=== PATIENT | male | born 1995 | race Caucasian/White ===

== ENCOUNTER 2016-08-11 20:41 | Emergency (ER) | payer OTHER ==
[2016-08-11 20:45] VITALS: BP 146/74; PULSE 64; TEMP 98; BMI 23.7
--- NOTE | 2016-08-11 20:47 | PDOC ---
History of Present Illness - General Chief Complaint: Toothache Stated Complaint: TOOTHACHE Time Seen by Provider: 08/11/16 20:46 History Source: Patient Exam Limitations: No Limitations - History of Present Illness Initial Comments: CHIEF COMPLAINT: 20 y/o afebrile male with no significant PMH c/o toothache for the past 3 days. HISTORY OF PRESENT ILLNESS: The patient admits he knows he needs a root canal and that one of his fillings is loose. He states he has an appointment for the dentist scheduled for saturday but he can't take the pain anymore. He states he had a fever yesterday. He has not taken anything for pain. Vital signs on arrival are within normal limits. REVIEW OF SYSTEMS: GENERAL/CONSTITUTIONAL: Subjective fever yesterday. No weakness. No weight change. HEAD, EYES, EARS, NOSE AND THROAT: No change in vision. No ear pain or discharge. No sore throat. +toothache CARDIOVASCULAR: No chest pain or shortness of breath. SKIN: No rash or easy bruising. NEUROLOGIC: No headache, vertigo, loss of consciousness, or loss of sensation. PHYSICAL EXAM: GENERAL: The patient is awake, alert, and fully oriented, in no acute distress. He is well appearing and ambulatory. HEAD: Normal with no signs of trauma. ENT: Pupils equal, round and reactive to light, extraocular movements intact, sclera anicteric, conjunctiva clear. No facial swelling. Back, lower left tooth exquisitely TTP with surrounding gingival erythema and edema. No fluctuance to face. No trismus. NEUROLOGICAL: Normal speech, normal gait. CN II-XII grossly intact. SKIN: Warm, dry, normal turgor, no rashes or lesions noted. Past History - Past Medical History Allergies/Adverse Reactions: Allergies Allergy/AdvReac Type Severity Reaction Status Date / Time No Known Allergies Allergy Verified 08/11/16 20:45 Home Medications: Ambulatory Orders Amoxicillin - [Amoxicillin 500mg Capsule -] 500 mg PO TID #21 capsule 08/11/16 Asthma: Yes - Immunization History Immunization Up to Date: No - Psycho/Social/Smoking Cessation Hx Anxiety: No Suicidal Ideation: No Smoking History: Never smoked Have you smoked in the past 12 months: No Information on smoking cessation initiated: No Hx Alcohol Use: No Drug/Substance Use Hx: No Substance Use Type: None *Physical Exam - Vital Signs Last Vital Signs Temp Pulse Resp BP Pulse Ox 98 F 64 18 146/74 100 08/11/16 20:43 08/11/16 20:43 08/11/16 20:43 08/11/16 20:43 08/11/16 20:43 Medical Decision Making - Medical Decision Making A/P: 20 y/o male with infected tooth. WIll give PO ibuprofen in the ER. WIll send rx for amoxicillin to pharmacy and instructed him to take entire 7 days. Suggested he take Motrin every 6 hours with food for pain, gargle with warm salt water after every meal and keep appointment with dentist scheduled for saturday. Pt instructed to return to the ER with any worsening or concerning symptoms. The patient verbalizes understanding of all instructions, has no further questions and is awaiting discharge. *DC/Admit/Observation/Transfer Diagnosis at time of Disposition: Dental caries, Toothache - Discharge Dispostion Disposition: HOME Condition at time of disposition: Good - Prescriptions Prescriptions: Amoxicillin - [Amoxicillin 500mg Capsule -] 500 mg PO TID #21 capsule - Referrals Referrals: Carmella Blackman [Primary Care Provider] - - Patient Instructions Printed Discharge Instructions: DI for Dental Pain, DI for Tooth Decay Additional Instructions: Discharge Instructions: -A prescription for antibiotics was sent to your pharmacy; please take as prescribed and complete entire course -Take 600mg of Ibuprofen every 6 hours for pain with food -Gargle with warm salt water or listerine after each meal -Follow up with your dentist on Saturday -Return to the ER with any worsening or concerning symptoms
[2016-08-11] MEDS ORDERED: IBUPROFEN 600 MG TABLET (FP) PO ONE ×2 (21:47→21:54)
== END 2016-08-11 22:04 | disposition home or self-care (01) ==
LOC: JERFT 20:41
DX: K02.9 Dental caries, unspecified (principal); J45.909 Unspecified asthma, uncomplicated
CPT/HCPCS: 99281-25

== ENCOUNTER 2018-01-21 20:48 | Emergency (ER) | payer SELFPAY ==
[2018-01-21 20:54] VITALS: BP 113/61; PULSE 89; TEMP 98.4; BMI 22.2
--- NOTE | 2018-01-21 20:54 | PDOC ---
Rapid Medical Evaluation Time Seen by Provider: 01/21/18 20:52 Medical Evaluation: Allergies Allergy/AdvReac Type Severity Reaction Status Date / Time No Known Allergies Allergy Verified 08/11/16 20:45 01/21/18 20:52 Pt presents for chills, body aches, constipation/rectal bleeding. Pt has hx of hemorrhoids Exam: well appearing, nad, afebrile Orders: defer to provider Pt to proceed to ED for further evaluation Discharge Disposition - Diagnosis Rectal bleed - Referrals - Patient Instructions - Post Discharge Activity
--- NOTE | 2018-01-21 21:40 | PDOC ---
History of Present Illness - General Chief Complaint: Rectal Bleed Stated Complaint: FEVER Time Seen by Provider: 01/21/18 20:52 - History of Present Illness Initial Comments: 01/21/18 21:37 22-year-old male presents for evaluation of fever chills or night sweats an upper respiratory type symptoms 5 days. He also has 3 days of bloody stool. He states he went have a bowel movement today he felt a wetness from his rectum and there was jennifer blood in the toilet dark red, and blood on the toilet paper. He also has history of hemorrhoids he feels this may be related Past History - Past Medical History Allergies/Adverse Reactions: Allergies Allergy/AdvReac Type Severity Reaction Status Date / Time No Known Allergies Allergy Verified 08/11/16 20:45 Home Medications: Ambulatory Orders NK [No Known Home Medication] 01/21/18 Asthma: Yes Cardiac Disorders: Yes (right bundle branch block) COPD: No - Immunization History Immunization Up to Date: No - Suicide/Smoking/Psychosocial Hx Smoking History: Never smoked Have you smoked in the past 12 months: No Hx Alcohol Use: No Drug/Substance Use Hx: No Substance Use Type: None Review of Systems - Review of Systems Constitutional: Yes: Chills, Fever, Malaise, Night Sweats ABD/GI: Yes: See HPI, Rectal Bleeding All Other Systems: Reviewed and Negative *Physical Exam - Vital Signs Last Vital Signs Temp Pulse Resp BP Pulse Ox 98.4 F 89 18 113/61 100 01/21/18 20:52 01/21/18 20:52 01/21/18 20:52 01/21/18 20:52 01/21/18 20:52 - Physical Exam Comments: 01/21/18 21:39 HEAD: NC/AT EYES: Conjuntiva clear Ears: Canals and TM's normal NOSE: No d/c THROAT: Moist mucous membrances, oral pharanx clear, uvula midline NECK: Supple without adenopathy CARDIAC: S1 S2 LUNGS: CTA Full and Equal breath sounds ABDOMEN: Soft NT ND, patient is unable to tolerate rectal examination. There are no external hemorrhoids. Rectal tone is normal. There feels to be an internal hemorrhoid at the 3 and 6 o'clock position. This is exquisitely tender. Bowel sounds are absent. Abdomen is soft and nontender in all quadrants. MS: Full ROM in all joints without edema NEUROLOGIC: No gross sensory or motor deficits, NVID SKIN: Normal color and temperature no lesions or rashes Medical Decision Making - Medical Decision Making I will transfer this patient to the main emergency room for further evaluation and treatment 01/21/18 21:40 *DC/Admit/Observation/Transfer Diagnosis at time of Disposition: Rectal bleed - Referrals - Patient Instructions - Post Discharge Activity
[2018-01-21 22:08] LABS: BASO % 0.2 % (0-2.0); EOS % 1.7 % (0-4.5); HEMATOCRIT 41.6 % (35.4-49); HEMOGLOBIN 14.2 GM/dL (11.7-16.9); LYMPH % 26.6 % (8-40); MCH 32.2 pg (25.7-33.7); MCHC 34.2 g/dl (32.0-35.9); MEAN CELL VOLUME 94.2 fl (80-96); MEAN PLT VOLUME 10.9 fl (7.5-11.1); MONO % 9.1 % (3.8-10.2); NEUT % 62.4 % (42.8-82.8); PLATELET COUNT 141 K/MM3 (134-434); RBC 4.42 M/mm3 (4.00-5.60); RDW 12.2 % (11.9-15.9); WHITE BLOOD COUNT 4.9 K/mm3 (4.0-10.0)
--- NOTE | 2018-01-21 22:09 | PDOC ---
*Physical Exam - Vital Signs Last Vital Signs Temp Pulse Resp BP Pulse Ox 98.4 F 89 18 113/61 100 01/21/18 20:52 01/21/18 20:52 01/21/18 20:52 01/21/18 20:52 01/21/18 20:52 - Physical Exam General Appearance: Yes: Appropriately Dressed ED Treatment Course - LABORATORY CBC & Chemistry Diagram: 01/21/18 21:53 01/21/18 21:53 Medical Decision Making - Medical Decision Making 01/21/18 22:07 22 year MSM with rectal bleeding. history of constipation. patient reports constipation x 4-5 days. rectal bleeding when he wiped/. 01/21/18 22:10 HIV negative 01/21/18 23:22 *DC/Admit/Observation/Transfer Diagnosis at time of Disposition: Rectal bleed Constipation Qualifiers: Constipation type: unspecified constipation type Qualified Code(s): K59.00 - Constipation, unspecified - Discharge Dispostion Disposition: HOME - Prescriptions Prescriptions: Magnesium Citrate [Citroma -] 195 ml PO ONCE #1 bottle Phenylephrine 0.25%/Starch [Anusol Suppository -] 1 each RC BID #14 supp Polyethylene Glycol 3350 [Miralax (For Daily Use) -] 17 gm PO DAILY #1 bottle - Referrals Referrals: Barry Herbert MD [Staff Physician] - Call tomorrow - Patient Instructions Printed Discharge Instructions: Constipation Additional Instructions: drink plenty of fluids use anusol for rectal pain use miralax as prescribed. drink magnesium citrate as prescribed. follow up with your doctor as soon as possible. - Post Discharge Activity Forms/Work/School Notes: Back to Work
[2018-01-21 22:22] LABS: INR 1.2 (0.83-1.09); PROTHROMBIN TIME (PATIENT) 14.2 SEC (9.7-13.0)
[2018-01-21] MEDS ORDERED: HYDROCORTISONE ACETATE 25 MG/SUPP.RECT PR ONE (22:24)
[2018-01-21 22:33] LABS: ALBUMIN 4.2 g/dl (3.4-5.0); ALK PHOS 100 U/L (45-117); ANION GAP 6 MMOL/L (8-16); BILIRUBIN,TOTAL 0.5 mg/dL (0.2-1); BLOOD UREA NITROGEN 9 mg/dL (7-18); CALCIUM 8.6 mg/dL (8.5-10.1); CHLORIDE 103 mmol/L (98-107); CO2 29 mmol/L (21-32); CREATININE 0.7 mg/dL (0.55-1.3); GLUCOSE,RANDOM 71 mg/dL (74-106); SGOT/AST 16 U/L (15-37); SGPT/ALT 19 U/L (13-61); SODIUM 138 mmol/L (136-145)
[2018-01-21 22:37] LABS: URINE APPEARANCE CLEAR; URINE BILIRUBIN NEGATIVE (<2.0 mg/dL); URINE COLOR YELLOW; URINE GLUCOSE (UA) NEGATIVE (NEGATIVE); URINE KETONE NEGATIVE (NEGATIVE); URINE LEUK ESTERASE NEGATIVE (NEGATIVE); URINE NITRITE NEGATIVE (NEGATIVE); URINE PROTEIN NEGATIVE (NEGATIVE); URINE UROBILINOGEN 4.0 E.U/dl mg/dL (0.2-1.0)
== END 2018-01-21 23:40 | disposition home or self-care (01) ==
LOC: JER 20:48
DX: K59.00 Constipation, unspecified (principal); K64.8 Other hemorrhoids
CPT/HCPCS: 36415; 80053; 81003; 82272; 85025; 85610; 86850; 86900; 86901; 87389; 87491; 87591; 87804; 99281-25

== ENCOUNTER 2018-01-23 00:28 | Emergency (ER) | payer SELFPAY ==
--- NOTE | 2018-01-23 00:53 | PDOC ---
History of Present Illness - General Chief Complaint: Pain Stated Complaint: ABD PAIN Time Seen by Provider: 01/23/18 00:49 History Source: Patient - History of Present Illness Initial Comments: 01/23/18 01:11 22 year old male seen in the ER for constipation and rectal hemorrhoidal pain yesterday c/o multiple small BMs after taking magnesium citrate at 2pm now with intermittent abdominal cramping and rectal pain. Past History - Past Medical History Allergies/Adverse Reactions: Allergies Allergy/AdvReac Type Severity Reaction Status Date / Time No Known Allergies Allergy Verified 01/23/18 03:18 Home Medications: Ambulatory Orders Hydrocortisone/Pramoxine [Procort 1.85%-1.15% Cream] 1 applic RC BID #1 cream.appl 01/23/18 Lidocaine 5% Top. Ointment [Xylocaine 5% Top. Ointment -] 1 applic TP BID PRN # 1 tube 01/23/18 Asthma: Yes Cardiac Disorders: Yes (right bundle branch block) COPD: No - Immunization History Immunization Up to Date: No - Suicide/Smoking/Psychosocial Hx Smoking History: Never smoked Have you smoked in the past 12 months: No Hx Alcohol Use: No Drug/Substance Use Hx: No Substance Use Type: None Review of Systems - Review of Systems Able to Perform ROS?: Yes Is the patient limited Arabic proficient: No Constitutional: No: Symptoms Reported, See HPI, Chills, Diaphoresis, Fever, Loss of Appetite, Malaise, Night Sweats, Weakness, Weight Stable, Unintentional Wgt. Loss, Unexplained wgt Loss, Other *Physical Exam - Physical Exam General Appearance: Yes: Appropriately Dressed Gastrointestinal/Abdominal: positive: Soft, Increased Bowel Sounds Male Genitalia: positive: normal genitalia, testicular mass Rectal Exam: positive: other (+ anal fissures) Extremity: positive: Normal Capillary Refill Integumentary: positive: Normal Color, Dry, Warm Neurologic: positive: Fully Oriented, Alert, Normal Mood/Affect ED Treatment Course - LABORATORY CBC & Chemistry Diagram: 01/23/18 03:04 01/23/18 03:04 Progress Note - Progress Note Progress Note: A: constipation. abdominal pain P: Medical Decision Making - Medical Decision Making 01/23/18 02:49 Abdomen xray: Borderline dilated air-filled small bowel left lower quadrant and top normal diameter loops left upper quadrant, possibly transient dilatation or ileus, with early/partial small bowel obstruction thought less likely but not excluded. Small air and fluid within colon. Splenilc flexure diameter is top normal. Minimal feces colon. 01/23/18 02:58 patient with intermittent severe abdominal cramping. xray cannot r/o SBO. will check labs, ctAP. *DC/Admit/Observation/Transfer Diagnosis at time of Disposition: Proctitis Abdominal pain Qualifiers: Abdominal location: generalized Qualified Code(s): R10.84 - Generalized abdominal pain - Discharge Dispostion Disposition: HOME Condition at time of disposition: Fair - Prescriptions Prescriptions: Hydrocortisone/Pramoxine [Procort 1.85%-1.15% Cream] 1 applic RC BID #1 cream.appl Lidocaine 5% Top. Ointment [Xylocaine 5% Top. Ointment -] 1 applic TP BID PRN # 1 tube PRN Reason: Pain - Referrals Referrals: Guerrero Ni MD [Staff Physician] - Call tomorrow - Patient Instructions Printed Discharge Instructions: Anal Fissure Additional Instructions: please follow up with a animal husbandry technician as soon as possible. apply the cream as prescribed for pain you may take Maalox for gas pain. Additional Instructions: * Please call your personal physician to report your Emergency Department visit and to report your progress, if any. * If there is no improvement in symptoms in 2 days call your physician. * Return to the Emergency Department for any worsening symptoms. - Post Discharge Activity Forms/Work/School Notes: Back to Work
[2018-01-23] MEDS ORDERED: LIDOCAINE HCL 5% TOP OINTMENT 50 GM TUBE TP ONE (00:55)
[2018-01-23] MEDS ORDERED: LIDOCAINE HCL 2% JELLY 10 ML CARTRIDGE ONE (01:02)
[2018-01-23 01:06] VITALS: BP 103/68; PULSE 84; TEMP 98.1; BMI 22.2
[2018-01-23] MEDS ORDERED: MAG HYDROX/AL HYDROX/SIMETH -MYLANTA- ORAL SUSPENSION PO ONE (01:48)
[2018-01-23] MEDS ORDERED: MAG HYDROX/AL HYDROX/SIMETH 30 ML UNIT-DOSE CUP ONE (02:08)
[2018-01-23] MEDS ORDERED: SODIUM CHLORIDE 1,000 ML IV STA (02:56)
[2018-01-23] MEDS ORDERED: MORPHINE SULFATE 2 MG/ML VIAL IVPUSH ONE (02:57)
[2018-01-23] MEDS ORDERED: MORPHINE SULFATE 2 MG/ML VIAL ONE (03:08)
[2018-01-23 03:11] LABS: BASO % 0.1 % (0-2.0); EOS % 0.5 % (0-4.5); HEMATOCRIT 40.9 % (35.4-49); HEMOGLOBIN 13.8 GM/dL (11.7-16.9); LYMPH % 10.2 % (8-40); MCH 31.3 pg (25.7-33.7); MCHC 33.8 g/dl (32.0-35.9); MEAN CELL VOLUME 92.5 fl (80-96); MEAN PLT VOLUME 10.9 fl (7.5-11.1); MONO % 7.6 % (3.8-10.2); NEUT % 81.6 % (42.8-82.8); PLATELET COUNT 146 K/MM3 (134-434); RBC 4.42 M/mm3 (4.00-5.60); RDW 11.9 % (11.9-15.9); WHITE BLOOD COUNT 7.9 K/mm3 (4.0-10.0)
[2018-01-23 03:39] LABS: ALBUMIN 4.1 g/dl (3.4-5.0); ALK PHOS 89 U/L (45-117); ANION GAP 10 MMOL/L (8-16); BILIRUBIN,TOTAL 0.6 mg/dL (0.2-1); BLOOD UREA NITROGEN 7 mg/dL (7-18); CALCIUM 8.5 mg/dL (8.5-10.1); CHLORIDE 104 mmol/L (98-107); CO2 24 mmol/L (21-32); CREATININE 0.7 mg/dL (0.55-1.3); GLUCOSE,RANDOM 93 mg/dL (74-106); LIPASE 133 U/L (73-393); SGOT/AST 14 U/L (15-37); SGPT/ALT 16 U/L (13-61); SODIUM 138 mmol/L (136-145); TOT PROT 7.5 g/dl (6.4-8.2)
== END 2018-01-23 05:31 | disposition home or self-care (01) ==
LOC: JER 00:28
PROC: 3E0337Z Introduction of Electrolytic and Water Balance Substance into Peripheral Vein, Percutaneous Approach (ICD-10-PCS; principal; 2018-01-23)
PROC: 3E033NZ Introduction of Analgesics, Hypnotics, Sedatives into Peripheral Vein, Percutaneous Approach (ICD-10-PCS; 2018-01-23)
DX: K62.89 Other specified diseases of anus and rectum (principal)
CPT/HCPCS: 36415; 74019-TC-FY; 74177-TC; 80053; 83690; 85025; 99283-25; J7030

== ENCOUNTER 2018-01-30 10:12 | Emergency (ER) | payer OTHER ==
[2018-01-30 10:32] VITALS: BP 108/64; PULSE 69; TEMP 98.7; BMI 20.7
[2018-01-30 10:53] LABS: URINE APPEARANCE CLEAR; URINE BILIRUBIN NEGATIVE (<2.0 mg/dL); URINE COLOR YELLOW; URINE GLUCOSE (UA) NEGATIVE (NEGATIVE); URINE KETONE NEGATIVE (NEGATIVE); URINE LEUK ESTERASE NEGATIVE (NEGATIVE); URINE NITRITE NEGATIVE (NEGATIVE); URINE PROTEIN NEGATIVE (NEGATIVE)
--- NOTE | 2018-01-30 11:37 | PDOC ---
History of Present Illness - General Chief Complaint: Urinary Problem Stated Complaint: Urinary symptoms Time Seen by Provider: 01/30/18 11:10 History Source: Patient Exam Limitations: Clinical Condition - History of Present Illness Initial Comments: 01/30/18 11:33 Patient with history of chronic constipation present with complain of dysuria and urinary retention for 3 days. Patient reported whenever he avoids he doesn' t completely empty his bladder and have hard time urinating. Patient was seen a week ago for same symptoms and STD test came back positive for chlamydia. Patient reported he was treated with both ceftriaxone and azithromycin in another clinic 6 days ago and symptoms improved. Patient reported both him and the partner was treated and has not had any sex since treatment. Patient also report bilateral inguinal tenderness lymph nodes for same. Patient denies fever , chills, back pain, nausea or vomiting. Timing/Duration: other (3 days) Past History - Past Medical History Allergies/Adverse Reactions: Allergies Allergy/AdvReac Type Severity Reaction Status Date / Time No Known Allergies Allergy Verified 01/30/18 10:23 Home Medications: Ambulatory Orders Doxycycline Hyclate 100 mg PO BID #14 tablet 01/30/18 Asthma: Yes Cardiac Disorders: Yes (right bundle branch block) COPD: No - Immunization History Immunization Up to Date: No - Suicide/Smoking/Psychosocial Hx Smoking History: Never smoked Have you smoked in the past 12 months: No Information on smoking cessation initiated: No Hx Alcohol Use: No Drug/Substance Use Hx: No Substance Use Type: None Review of Systems - Review of Systems Able to Perform ROS?: Yes Is the patient limited Tanzanian proficient: No Constitutional: No: Chills, Fever Respiratory: No: Symptoms reported, Cough, Orthopnea, Shortness of Breath, SOB with Exertion, SOB at Rest, Stridor, Wheezing, Productive cough, Hemoptysis, Other Cardiac (ROS): No: See HPI, Chest Pain, Edema, Irregular Heart Rate, Lightheadedness, Palpitations, Syncope, Chest Tightness, Other : Yes: See HPI, Other (swollen b/l lymph node). No: Dysuria, Discharge, Frequency, Flank Pain, Hematuria, Urgency Musculoskeletal: No: Back Pain Hematologic/Lymphatic: Yes: Lymph Node Abnormalities (b/l inguinal) All Other Systems: Reviewed and Negative *Physical Exam - Vital Signs Last Vital Signs Temp Pulse Resp BP Pulse Ox 98.7 F 69 18 108/64 99 01/30/18 10:19 01/30/18 10:19 01/30/18 10:19 01/30/18 10:19 01/30/18 10:19 - Physical Exam Comments: 01/30/18 11:38 GENERAL: Well developed, well nourished. Awake and alert. No acute distress. NECK: Supple. Full ROM. No JVD. Carotid pulses 2+ and symmetric, without bruits. No thyromegaly. No lymphadenopathy. CARDIOVASCULAR: Regular rate and rhythm. No murmurs, rubs, or gallops. Distal pulses are 2+ and symmetric. PULMONARY: No evidence of respiratory distress. Lungs clear to auscultation bilaterally. No wheezing, rales or rhonchi. ABDOMINAL: Soft. Non-tender. Non-distended. No rebound or guarding. No organomegaly. Normoactive bowel sounds. : b/l swollen inguinal lymphandenopathy. no penis pain or lesion. no scrotal swelling or edema SKIN: Warm and dry. Normal capillary refill. No rashes. No jaundice. NEUROLOGICAL: Alert, awake, appropriate. PSYCHIATRIC: Cooperative. Good eye contact. Appropriate mood and affect. General Appearance: Yes: Nourished, Appropriately Dressed. No: Apparent Distress ED Treatment Course - ADDITIONAL ORDERS Additional order review: Laboratory Results 01/30/18 10:30 Urine Color Yellow Urine Appearance Clear Urine pH 6.0 D Ur Specific [place] 1.023 Urine Protein Negative Urine Glucose (UA) Negative Urine Ketones Negative Urine Blood Negative Urine Nitrite Negative Urine Bilirubin Negative Urine Urobilinogen 2.0 Ur Leukocyte Esterase Negative - RADIOLOGY Radiology Studies Ordered: Category Date Time Status PELVIC / BLADDER US [US] Stat Ultrasound 01/30/18 11:27 Ordered Medical Decision Making - Medical Decision Making 01/30/18 11:44 Patient with history of constipation and STI infection status post treatment for chlamydia a week ago present with complain of dysuria, bilateral inguinal left no swelling and retention. Patient able to give urine for urinalysis without problem but reported not completely able to empty bladder. Exams significant for bilateral groin no lymphadenopathy. Pelvic/blaader ultrasound ordered. Urinalysis with no significant findings. Treat based on ultrasound results 01/30/18 12:40 bladder ultrasound done shows no acute pathology. patient stable for discharge on doxycycline with urology follow-up 01/30/18 12:43 *DC/Admit/Observation/Transfer Diagnosis at time of Disposition: Dysuria, Inguinal lymphadenitis - Discharge Dispostion Disposition: HOME Condition at time of disposition: Stable Decision to Admit order: No - Prescriptions Prescriptions: Doxycycline Hyclate 100 mg PO BID #14 tablet - Referrals Referrals: Mimi Maloney S.A. [Other Staff,non-medical] - - Patient Instructions Printed Discharge Instructions: DI for Lymphadenopathy Additional Instructions: Your ultrasound was negative. Take prescribed medication and condition. Follow up with preferred urology for follow-up evaluation. - Post Discharge Activity
== END 2018-01-30 13:01 | disposition home or self-care (01) ==
LOC: JERFT 10:12
DX: I88.8 Other nonspecific lymphadenitis (principal); K59.09 Other constipation; Z86.19 Personal history of other infectious and parasitic diseases
CPT/HCPCS: 76856-TC; 81003; 87086; 99281-25

== ENCOUNTER 2018-06-01 17:24 | Emergency (ER) | payer SELFPAY ==
[2018-06-01 17:34] VITALS: BP 97/50; PULSE 61; TEMP 98.5; BMI 22.2
== END 2018-06-01 17:55 | disposition left against medical advice (07) ==
LOC: JERFT 17:24
DX: Z53.21 Procedure and treatment not carried out due to patient leaving prior to being seen by health care provider (principal)
CPT/HCPCS: 99281-25

== ENCOUNTER 2018-08-28 19:04 | Emergency (ER) | payer OTHER | END 2018-08-28 21:36 | disposition home or self-care (01) | LOC: JERFT 19:04 ==

== ENCOUNTER 2018-11-16 15:24 | Emergency (ER) | payer OTHER ==
[2018-11-16 15:40] VITALS: TEMP 97.9; BMI 23.3
--- NOTE | 2018-11-16 16:18 | PDOC ---
History of Present Illness - General Chief Complaint: Asthma Stated Complaint: ASTHMA Time Seen by Provider: 11/16/18 16:11 History Source: Significant Other - History of Present Illness Initial Comments: 11/16/18 17:24 Meet Coyne is a 22 y/o man with hx asthma, GERD, followed by cardiology for workup of EKG changes thought to be evolving RBBB presenting for three hours of chest tightness and mild wheezing. He is accompanied by his boyfriend. He was treated here two days ago for asthma exacerbation, with symptom resolution after duoneb x2 and prednisone. He was prescribed prednisone after symptom resolution and was discharged home. He reports that yesterday he felt well, but that at approx 1400 today he began endorsing 7/10 chest tightness with mild wheezing. He denies any dizziness, LOC, difficulty breathing, fatigue, fevers, chills. He reports not taking his albuterol inhaler or steroid today due to concern that they would worsen his chest tightness. He reports that they have a cat. No sick contacts. Past History - Past Medical History Allergies/Adverse Reactions: Allergies Allergy/AdvReac Type Severity Reaction Status Date / Time No Known Allergies Allergy Verified 11/14/18 21:37 Home Medications: Ambulatory Orders Albuterol Sulfate Inhaler - [Ventolin Hfa Inhaler -] 1 - 2 inh PO QID 11/14/18 Clindamycin 1% Gel [Cleocin] 30 gm TP PRN 11/14/18 Clindamycin Phos/Benzoyl Perox [Benzaclin Gel] 25 gm TP DAILY 11/14/18 Famotidine [Pepcid] 40 mg PO HS 11/14/18 Fluticasone Prop 0.05% Nasal [Flonase -] 1 - 2 spray NS HS 11/14/18 Prednisone [Prednisone 50 MG TABLETS] 50 mg PO DAILY #5 tablet 11/14/18 Asthma: Yes Cardiac Disorders: Yes (right bundle branch block) COPD: No - Immunization History Immunization Up to Date: No - Suicide/Smoking/Psychosocial Hx Smoking History: Never smoked Have you smoked in the past 12 months: No Information on smoking cessation initiated: No Hx Alcohol Use: No Drug/Substance Use Hx: No Substance Use Type: None Review of Systems - Review of Systems Able to Perform ROS?: Yes Comments:: 11/16/18 17:15 ROS: GENERAL/CONSTITUTIONAL: No fever or chills. No weakness. HEAD, EYES, EARS, NOSE AND THROAT: No change in vision. No ear pain or discharge. No sore throat. CARDIOVASCULAR: Chest tightness, shortness of breath RESPIRATORY: No cough, wheezing, or hemoptysis. GASTROINTESTINAL: No nausea, vomiting, diarrhea or constipation. GENITOURINARY: No dysuria, frequency, or change in urination. MUSCULOSKELETAL: No joint or muscle swelling or pain. No neck or back pain. SKIN: No rash NEUROLOGIC: No headache, vertigo, loss of consciousness, or change in strength/ sensation. ENDOCRINE: No increased thirst. No abnormal weight change HEMATOLOGIC/LYMPHATIC: No anemia, easy bleeding, or history of blood clots. ALLERGIC/IMMUNOLOGIC: No hives or skin allergy. *Physical Exam - Vital Signs Last Vital Signs Temp Pulse Resp BP Pulse Ox 97.9 F 64 16 121/77 100 11/16/18 15:35 11/16/18 15:35 11/16/18 15:35 11/16/18 15:35 11/16/18 15:35 - Physical Exam Comments: 11/16/18 17:15 PE: GENERAL: Awake, alert, and fully oriented, in no acute distress HEAD: No signs of trauma, normocephalic, atraumatic EYES: PERRLA, EOMI, sclera anicteric, conjunctiva clear ENT: Auricles normal inspection, hearing grossly normal, nares patent, oropharynx clear without exudates. Moist mucosa NECK: Normal ROM, supple, no lymphadenopathy, JVD, or masses LUNGS: No distress, speaks full sentences. Mild wheezes diffusely, normal air movement into lungs, no consolidations. HEART: Regular rate and rhythm, normal S1 and S2, no murmurs, rubs or gallops, peripheral pulses normal and equal bilaterally. ABDOMEN: Soft, nontender, normoactive bowel sounds. No guarding, no rebound. No masses EXTREMITIES : Clubbing of fingers of bilateral hands. Normal inspection, Normal range of motion, no edema. No cyanosis. NEUROLOGICAL: Cranial nerves II through XII grossly intact. Normal speech, normal gait, no focal sensorimotor deficits SKIN: Warm, Dry, normal turgor, no rashes or lesions noted Medical Decision Making - Medical Decision Making 11/16/18 17:16 22 y/o M with hx asthma, GERD, ?partial RBBB being worked up by cardiology (Dr. Vega) p/w three hours of mild wheezing and chest tightness, speaking full sentences with no distress, after not taking his inhaler or prednisone today. Most consistent with asthma exacerbation, cardiac etiology unlikely given overall presentation and history, but possible given ongoing cardiac evaluation. Of note, clubbing of fingers on physical exam may indicate other structural cardiac pathology not yet worked up. He will follow with cardiology during his appointment on Saturday. Plan: Duoneb x1 given mild sx Prednisone po Troponin x1 Follow up with Dr. Vega (cardiology) during already scheduled appointment Counseled regarding possible chest symptoms with asthma and importance of medication use Dispo: Home pending troponin, symptomatic improvement with duoneb, steroid 11/16/18 19:12 Called down to lab - HIV oraquick test unavailable. Ordered HIV serum 4th gen 11/16/18 20:50 Lungs clearer bilaterally on exam. Patient reporting symptom resolution. Plan for discharge home, follow up with PCP, tip printer as scheduled *DC/Admit/Observation/Transfer Diagnosis at time of Disposition: Asthma Qualifiers: Asthma severity: mild Asthma persistence: unspecified Asthma complication type : unspecified Qualified Code(s): J45.909 - Unspecified asthma, uncomplicated - Discharge Dispostion Disposition: HOME Condition at time of disposition: Stable Decision to Admit order: No - Referrals Referrals: ON STAFF,NOT [Primary Care Provider] - - Patient Instructions Printed Discharge Instructions: Facts About Sexually Transmitted Infections, Asthma -- Adult Additional Instructions: You were seen in the Emergency Department for asthma. Please follow up with your primary care provider in the next few days. Make sure that you take your inhaler and steroid medication, as they can help prevent your symptoms. Please return to the emergency department if you develop any severe shortness of breath , or having trouble breathing. Make sure that you follow up with your tip printer on Saturday during your scheduled appointment. The results of your STI testing will be available online in the secure patient portal in the next few days. - Post Discharge Activity Forms/Work/School Notes: Back to Work
[2018-11-16] MEDS ORDERED: ALBUTEROL SO4 2.5/IPRATROPIUM 0.5 INH SOL 3 ML VIAL.NEB. NEB ONE ×2 (16:59→17:18)
[2018-11-16] MEDS ORDERED: predniSONE 5 MG TABLET (UD) PO ONE (16:59)
[2018-11-16] MEDS ORDERED: predniSONE 20 MG TABLET (UD) PO ONE (20:06)
[2018-11-16] MEDS ORDERED: predniSONE 20 MG TABLET (UD) ONE (20:14)
[2018-11-16 21:13] VITALS: BP 120/75; PULSE 58
--- NOTE | 2018-11-16 23:03 | PDOC ---
Documentation entered by Spenser Womack SCRIBE, acting as scribe for Aleksandra Mcclendon MD. Aleksandra Mcclendon MD: This documentation has been prepared by the Vu lee Nirvannie, SCRIBE, under my direction and personally reviewed by me in its entirety. I confirm that the documentation accurately reflects all work, treatment, procedures, and medical decision making performed by me. Attending Attestation - Resident Resident Name: Alirio Kauffman - ED Attending Attestation I have performed the following: I have examined & evaluated the patient, The case was reviewed & discussed with the resident, I agree w/resident's findings & plan - HPI HPI: The patient is a 22 year old male, with a significant past medical history of asthma, who presents to the emergency department with, chest tightness and difficulty breathing. Patient endorses coming to the ED 2 days ago (11/14) for similar symptoms and was discharged on Prednisone. Patient notes not using his rescue inhaler secondary to him thinking it will worsen his symptoms. He denies any fevers, chills, or change in strength or sensation. 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 Allergies: NKDA - Physicial Exam PE: 11/16/18 17:07 GENERAL: Well-appearing, well-nourished. No apparent distress. HEENT: Normocephalic, atraumatic. CARDIOVASCULAR: Normal S1, S2. Regular rate and rhythm. PULMONARY: +Scant wheezing to the right lower bases. ABDOMEN: Soft, non-distended, non-tender. EXTREMITIES: +Clubbing to the blt nails. Normal ROM in all four extremities. SKIN: Warm, dry. No rash NEUROLOGICAL: No focal neurological deficits. - Medical Decision Making 11/16/18 17:57 22 yo male w h/o asthma, seen 2 days ago for asthma exacerbation has not taken inhaler or steroids today because he thought it would make his chest tightness worse -no fever,no URI symptoms, no exertional dyspnea -he does have an appt w cardiology this Wed w DR Vega for stress test -no family h/o early cardiac demise his troponin is negative Pt has concerns about STD and will do HIV testing, prior h/o treated gonorrhea in past. Pt told he will be contacted if his tests are positive for STD imp asthma exacerbation/atypical chest pain plan keep appt with Dr Saurabh Vega this Saturday - 11/16/18 19:00 11/16/18 23:02
[2018-11-17 05:35] LABS: RPR NONREACTIVE (NONREACTIVE)
[2018-11-17 07:11] LABS: TREPONEMA ANTIBODY NON REACTIVE (NONREACTIVE)
--- NOTE | 2018-11-17 08:15 | EKG ---
Test Reason : Blood Pressure : / mmHG Vent. Rate : 072 BPM Atrial Rate : 072 BPM P-R Int : 148 ms QRS Dur : 100 ms QT Int : 382 ms P-R-T Axes : 054 068 034 degrees QTc Int : 418 ms NORMAL SINUS RHYTHM POSSIBLE LEFT ATRIAL ENLARGEMENT INCOMPLETE RIGHT BUNDLE BRANCH BLOCK NONSPECIFIC T WAVE ABNORMALITY ABNORMAL ECG WHEN COMPARED WITH ECG OF 14-NOV-2018 20:28, INCOMPLETE RIGHT BUNDLE BRANCH BLOCK IS NOW PRESENT ST NO LONGER ELEVATED IN ANTERIOR LEADS T WAVE INVERSION NOW EVIDENT IN ANTERIOR LEADS CLINICAL CORRELATION IS RECOMMENDED Confirmed by BELLE MEYERS, OSCAR ([id number]) on 11/17/2018 8:15:33 AM Referred By: Confirmed By:OSCAR ODONNELL MD
[2018-11-18 19:06] LABS: HEP B CORE AB, TOT Negative (Negative)
== END 2018-11-16 20:50 | disposition home or self-care (01) ==
LOC: JER 15:24
PROC: 3E0F7GC Introduction of Other Therapeutic Substance into Respiratory Tract, Via Natural or Artificial Opening (ICD-10-PCS; principal; 2018-11-16)
DX: J45.909 Unspecified asthma, uncomplicated (principal)
CPT/HCPCS: 36415; 84484; 86593; 86704; 86705; 86706; 86707; 86780; 87389; 87491; 87522; 87591; 87661; 93005; 93010; 94640; 99282-25

== ENCOUNTER 2018-11-21 11:02 | Emergency (ER) | payer OTHER ==
[2018-11-21 11:21] VITALS: BP 118/71; PULSE 84; TEMP 97.8; BMI 23.0
--- NOTE | 2018-11-21 11:53 | PDOC ---
Attending Attestation - Resident Resident Name: Jose House - ED Attending Attestation I have performed the following: I have examined & evaluated the patient, The case was reviewed & discussed with the resident, I agree w/resident's findings & plan, Exceptions are as noted - HPI HPI: 11/21/18 11:48 22 yo male with h/o rbbb, asthma here today c/o pain left forearm. pt states he was seen twice in ed recently in last few weeks, once for syncope, and a second visit for an asthma exacerbation. at second visit he states he was given an injection in to his forearm. since has had bruising and pain in left upper arm and around area of bruise. states he was told by ems at that time they gave him the injection because were concerned about an overdose, but he denies ever using any injected drugs. no f/c no cp no sob. - Physicial Exam PE: 11/21/18 11:51 awake alert lungs faint exp wheeze bilat. heart rrrr no mrg abd soft nt nd skin left forearm area 2 x 3 inches bruising, no warmth no erythema. compartment forearm is soft, 2 + radial /ulnar pulses. hyperesthesia left inner upper arm. 11/21/18 11:54 - Medical Decision Making 11/21/18 11:53 22 yo male h/o asthma, here with c/o left arm pain after iv/ injection by ems. due to hyperestehsia, consider upper ext dvt, infection possible however no warmth, no erythema. noted bruising. no signs of compartment syndrome pt sensation intact and compartment soft. mostly tender up above elbow near bicep. plan doppler upper ext, warm compress. motrin 600, basic labs. if negative dc home with warm compress. 11/21/18 12:30 review pt chart shows multilple ed visits for various complaints std checks, rectal bleeding and asthma. d/w pt regarding home safety. states he lives with partner who he feels safe with. lives in safe environment. does report ho anxiety and panic attacks, not on any medication. denies thoughts of self harm or harm to others. no hallucinations. would like psychiatrist for outpt referral given name of DR Osei. 11/21/18 13:21 pt labs unremarkable, doppler left arm negative. dc home with warm compress, motrin for pain and given referral for [facility] per pt request for anxiety
[2018-11-21] MEDS ORDERED: IBUPROFEN 600 MG TABLET (FP) PO ONE ×2 (11:54→11:59)
--- NOTE | 2018-11-21 12:09 | PDOC ---
History of Present Illness - General Chief Complaint: Wound Stated Complaint: RT ARM INFCTION FROM THE IV Time Seen by Provider: 11/21/18 11:15 - History of Present Illness Initial Comments: 11/21/18 11:52 22m with pmh of asthma presents with hematoma of the left antecubital fossa with pain radiating to the left armpit. Was the IV site when he visited the ED on 11/16/18. Complains that the pain started 2 days ago, got worse, and now very tender. He claims the IV site was actually on the right side of the arm, and that "EMS injected something in [his] veins" during transport. IV site on records was on the left. No reports that the patient was given anything by EMS last visit. EMS records show that on the 16 of November the primary reason he was brought to the ED was Psychotic disorder/psych eval. did have an 18 gauge IV on the 23rd place on the left where he was given dexamethasone. Patient also has multiple visits for STD's. on the past and previous visit for lymphadenitis of the neck. Past History - Past Medical History Allergies/Adverse Reactions: Allergies Allergy/AdvReac Type Severity Reaction Status Date / Time No Known Allergies Allergy Verified 11/21/18 11:13 Home Medications: Ambulatory Orders Albuterol Sulfate Inhaler - [Ventolin Hfa Inhaler -] 1 - 2 inh PO QID 11/14/18 Clindamycin 1% Gel [Cleocin] 30 gm TP PRN 11/14/18 Clindamycin Phos/Benzoyl Perox [Benzaclin Gel] 25 gm TP DAILY 11/14/18 Famotidine [Pepcid] 40 mg PO HS 11/14/18 Fluticasone Prop 0.05% Nasal [Flonase -] 1 - 2 spray NS HS 11/14/18 Asthma: Yes Cardiac Disorders: Yes (right bundle branch block) COPD: No - Immunization History Immunization Up to Date: No - Suicide/Smoking/Psychosocial Hx Smoking History: Never smoked Have you smoked in the past 12 months: No Information on smoking cessation initiated: No Hx Alcohol Use: No Drug/Substance Use Hx: No Substance Use Type: None Review of Systems - Review of Systems Able to Perform ROS?: Yes Is the patient limited Kazakh proficient: No Constitutional: No: Symptoms Reported HEENTM: No: Symptoms Reported Respiratory: No: Symptoms reported Cardiac (ROS): No: Symptoms Reported ABD/GI: No: Symptoms Reported Musculoskeletal: Yes: See HPI Integumentary: Yes: See HPI Neurological: No: Symptoms reported *Physical Exam - Vital Signs Last Vital Signs Temp Pulse Resp BP Pulse Ox 97.8 F 84 16 118/71 100 11/21/18 11:05 11/21/18 11:05 11/21/18 11:05 11/21/18 11:05 11/21/18 11:05 - Physical Exam General Appearance: Yes: Nourished, Appropriately Dressed. No: Apparent Distress HEENT: positive: EOMI, BRANDON, Normal ENT Inspection Respiratory/Chest: positive: Lungs Clear, Normal Breath Sounds. negative: Chest Tender, Respiratory Distress Cardiovascular: positive: Regular Rhythm, Regular Rate, S1, S2 Gastrointestinal/Abdominal: positive: Normal Bowel Sounds, Flat, Soft. negative : Tender Extremity: positive: Normal Capillary Refill Integumentary: positive: Normal Color, Dry, Warm, Other (5x7cm hematoma to the left antecubital fossa, no tension of the compartments of the forearm, no redness, streak of swollen lymph nodes. Although tender along ventral surface of the arm. ) Neurologic: positive: Fully Oriented, Alert, Normal Mood/Affect, Normal Response , Motor Strength 5/5 ED Treatment Course - LABORATORY CBC & Chemistry Diagram: 11/21/18 11:55 11/21/18 11:55 - RADIOLOGY Radiology Studies Ordered: Category Date Time Status DUPLEX VASCUL US-1 ARM [US] Stat Ultrasound 11/21/18 11:45 Ordered Medical Decision Making - Medical Decision Making 11/21/18 12:12 22m with pain alomng the arm from IV insertion last time. Will get basic labs, duplex ultrasound to r/o UE DVT. Due to dubious and contradicting story will check for urine tox. Patient states he lives with partner and feels safe at home, not coerced. 11/21/18 13:09 There is no evidence of deep venous thrombosis in the left upper extremity including the jugular and subclavian vein. 11/21/18 13:09 All labs negative, duplex negative. ok to discharge. *DC/Admit/Observation/Transfer Diagnosis at time of Disposition: Arm pain - Discharge Dispostion Disposition: HOME Condition at time of disposition: Improved Decision to Admit order: No - Referrals - Patient Instructions Printed Discharge Instructions: DI for Arm Pain Additional Instructions: Come back to the emergency department for any new, worsening or concerning symptom. Follow up with your primary physician for any new, worsening or concerning symptom. - Post Discharge Activity
[2018-11-21 12:16] LABS: BASO % 0.7 % (0-2.0); EOS % 2.8 % (0-4.5); HEMATOCRIT 42.9 % (35.4-49); HEMOGLOBIN 14.9 GM/dL (11.7-16.9); LYMPH % 24.8 % (8-40); MCH 32.6 pg (25.7-33.7); MCHC 34.9 g/dl (32.0-35.9); MEAN CELL VOLUME 93.5 fl (80-96); MEAN PLT VOLUME 11.5 fl (7.5-11.1); MONO % 6.9 % (3.8-10.2); NEUT % 64.8 % (42.8-82.8); PLATELET COUNT 152 K/MM3 (134-434); RBC 4.58 M/mm3 (4.00-5.60); RDW 12.3 % (11.9-15.9); WHITE BLOOD COUNT 5.2 K/mm3 (4.0-10.0)
[2018-11-21 12:31] LABS: COCAINE, UR NEGATIVE ng/ml (CUTOFF=300); METHADONE, UR NEGATIVE ng/ml (CUTOFF=300); OPIATES, URI NEGATIVE ng/ml (CUTOFF=300); PHENCYCLIDINE,URINE NEGATIVE ng/ml (CUTOFF=25); URINE AMPHETAMINES NEGATIVE ng/ml (CUTOFF=500); URINE BARBITURATES NEGATIVE ng/ml (CUTOFF=200); URINE BENZODIAZEPINES NEGATIVE ng/ml (CUTOFF=200)
[2018-11-21 12:43] LABS: ALBUMIN 4.4 g/dl (3.4-5.0); BLOOD UREA NITROGEN 9.7 mg/dL (7-18); CALCIUM 9.3 mg/dL (8.5-10.1); CREATININE 0.8 mg/dL (0.55-1.3); POTASSIUM 4.1 mmol/L (3.5-5.1); TOT PROT 7.6 g/dl (6.4-8.2)
== END 2018-11-21 13:23 | disposition home or self-care (01) ==
LOC: JER 11:02
DX: L76.32 Postprocedural hematoma of skin and subcutaneous tissue following other procedure (principal); J45.909 Unspecified asthma, uncomplicated; I45.10 Unspecified right bundle-branch block
CPT/HCPCS: 36415; 80053; 80307; 85025; 93971; 99282-25

== ENCOUNTER 2021-01-10 18:56 | Emergency (ER) | payer OTHER ==
[2021-01-10] MEDS ORDERED: EMTRICITABINE 200MG/TENOFOVIR 300MG PO ONE ×2 (19:22→20:18)
[2021-01-10] MEDS ORDERED: RALTEGRAVIR POTASSIUM 400 MG TAB PO ONE ×2 (19:22→20:18)
[2021-01-10 19:29] VITALS: BP 119/70; PULSE 73; TEMP 98.3; BMI 24.4
[2021-01-10] MEDS ORDERED: HIV POST EXPOSURE PROPHYLAXIS KIT PO ONE (20:20)
[2021-01-10 21:56] LABS: ALBUMIN 4.4 g/dl (3.4-5.0)
[2021-01-10 21:58] LABS: CALCIUM 9.6 mg/dL (8.5-10.1)
[2021-01-10 22:00] LABS: CREATININE 0.8 mg/dL (0.55-1.3)
[2021-01-10 22:02] LABS: BASO % 0.6 % (0-2.0); EOS % 3.7 % (0-4.5); HEMATOCRIT 44.3 % (35.4-49); HEMOGLOBIN 15.4 GM/dL (11.7-16.9); LYMPH % 32.6 % (8-40); MCH 32.4 pg (25.7-33.7); MCHC 34.6 g/dl (32.0-35.9); MEAN CELL VOLUME 93.5 fl (80-96); MEAN PLT VOLUME 11.6 fl (7.5-11.1); MONO % 7.3 % (3.8-10.2); NEUT % 55.8 % (42.8-82.8); PHOSPHOROUS 3.1 mg/dL (2.5-4.9); PLATELET COUNT 154 10^3/uL (134-434); RBC 4.74 M/mm3 (4.00-5.60); TOT PROT 7.9 g/dl (6.4-8.2); WHITE BLOOD COUNT 5.5 K/mm3 (4.0-10.0)
[2021-01-10 22:04] LABS: BILIRUBIN,TOTAL 0.4 mg/dL (0.2-1)
[2021-01-10 23:15] LABS: HIV INTERPRETATION NEGATIVE (NEGATIVE)
== END 2021-01-10 21:30 | disposition home or self-care (01) ==
LOC: JERFT 18:56
DX: Z20.6 Contact with and (suspected) exposure to human immunodeficiency virus [HIV] (principal)
CPT/HCPCS: 36415; 80053; 82465; 82977; 83615; 84100; 84478; 85025; 86704; 86706; 86780; 86803; 87340; 87389; 87517; 99283-25

== ENCOUNTER 2021-06-17 04:49 | Emergency (ER) | payer OTHER ==
[2021-06-17] MEDS ORDERED: LIDOCAINE 5% TOPICAL PATCH TP ONE (05:19)
[2021-06-17] MEDS ORDERED: ACETAMINOPHEN 325 MG TABLET (FP) PO ONE (05:19)
[2021-06-17] MEDS ORDERED: KETOROLAC TROMETHAMINE 30 MG/1 ML VIAL IM ONE (05:19)
[2021-06-17 05:21] VITALS: BP 108/58; PULSE 64; BMI 24.8
[2021-06-17 06:09] VITALS: TEMP 98.6
== END 2021-06-17 06:00 | disposition home or self-care (01) ==
LOC: JER 04:49
PROC: 3E0233Z Introduction of Anti-inflammatory into Muscle, Percutaneous Approach (ICD-10-PCS; principal; 2021-06-17)
DX: M54.6 Pain in thoracic spine (principal); V49.9XXA Car occupant (driver) (passenger) injured in unspecified traffic accident, initial encounter
CPT/HCPCS: 96372; 99284-25

== ENCOUNTER 2021-10-24 20:28 | Emergency (ER) | payer OTHER ==
[2021-10-24 22:07] VITALS: BP 123/65; PULSE 83; RESP 20; TEMP 98.1; BMI 25.1
[2021-10-24] MEDS ORDERED: hydrOXYzine PAMOATE 25 MG CAPSULE (FP) PO ONE ×2 (22:37→22:51)
[2021-10-24 23:04] LABS: URINE APPEARANCE CLEAR; URINE BILIRUBIN NEGATIVE (NEGATIVE); URINE COLOR YELLOW; URINE GLUCOSE (UA) NEGATIVE (NEGATIVE); URINE KETONE NEGATIVE (NEGATIVE); URINE LEUK ESTERASE NEGATIVE (NEGATIVE); URINE NITRITE NEGATIVE (NEGATIVE); URINE PROTEIN NEGATIVE (NEGATIVE)
== END 2021-10-25 00:43 | disposition home or self-care (01) ==
LOC: JER 20:28
DX: N30.10 Interstitial cystitis (chronic) without hematuria (principal)
CPT/HCPCS: 36415; 81003; 87086; 87491; 87591; 99283-25

== ENCOUNTER 2021-12-10 18:49 | Emergency (ER) | payer OTHER ==
[2021-12-10 19:21] VITALS: BP 134/80; PULSE 65; RESP 20; TEMP 98.1; BMI 25.8
[2021-12-10] MEDS ORDERED: METOCLOPRAMIDE HCL INJECTION 10 MG/2 ML VIAL IVPUSH ONE (19:54)
[2021-12-10] MEDS ORDERED: SODIUM CHLORIDE 1,000 ML IV STA (19:54)
[2021-12-10] MEDS ORDERED: METOCLOPRAMIDE HCL INJECTION 10 MG/2 ML VIAL ONE (20:20)
[2021-12-10 21:40] LABS: CALCIUM 9.1 mg/dL (8.5-10.1)
[2021-12-10 21:41] LABS: ALBUMIN 4.1 g/dl (3.4-5.0); BLOOD UREA NITROGEN 12.7 mg/dL (7-18)
[2021-12-10 21:44] LABS: CREATININE 0.7 mg/dL (0.55-1.3)
[2021-12-10 21:46] LABS: BILIRUBIN,TOTAL 0.5 mg/dL (0.2-1); TOT PROT 7.2 g/dl (6.4-8.2)
== END 2021-12-10 22:14 | disposition left against medical advice (07) ==
LOC: JER 18:49
PROC: 3E033GC Introduction of Other Therapeutic Substance into Peripheral Vein, Percutaneous Approach (ICD-10-PCS; principal; 2021-12-10)
PROC: 3E0337Z Introduction of Electrolytic and Water Balance Substance into Peripheral Vein, Percutaneous Approach (ICD-10-PCS; 2021-12-10)
DX: R21 Rash and other nonspecific skin eruption (principal)
CPT/HCPCS: 36415; 80053; 82962; 99284-25